=== PATIENT | female | born 1980 | race Two or more races ===

== ENCOUNTER 2020-01-30 08:34 | Outpatient (CLI) | payer OTHER ==
[~2020-01-30 08:34] MED LIST: EXCEDRIN MIGRAI1 TAB; SUMATRIPTAN SUC50 MG
== END 2020-01-30 09:02 | disposition home or self-care (01) ==
LOC: NUCLEAR 08:34
DX: K81.1 Chronic cholecystitis (principal)
CPT/HCPCS: 78227; A9537

== ENCOUNTER 2020-03-28 09:10 | Outpatient (CLI) | payer OTHER | END 2020-03-28 09:12 | disposition home or self-care (01) | LOC: SONOGRAMA 09:10 → MAMO-SONO 09:15 | DX: K80.10 Calculus of gallbladder with chronic cholecystitis without obstruction (principal); I10 Essential (primary) hypertension; G43.101 Migraine with aura, not intractable, with status migrainosus; N96 Recurrent pregnancy loss; O00.80 Other ectopic pregnancy without intrauterine pregnancy; R16.2 Hepatomegaly with splenomegaly, not elsewhere classified; R94.5 Abnormal results of liver function studies ==

== ENCOUNTER → 2022-05-08 | Emergency (ER) | payer OTHER ==
[~2022-05-08] VITALS: Ht 165.1 cm; Wt 95.3 kg
[~2022-05-08] MED LIST changes: +FIORINAL 50-321 EACH PO; +METHYLDOPA250 MG PO; +MIRALAX17 GM PO; +TYLENOL ARTHRI650 MG PO; +ULTRAM50 MG PO
== END | disposition home or self-care (01) ==
LOC: ER 11:06
DX: R07.89 Other chest pain (principal); T80.89XA Other complications following infusion, transfusion and therapeutic injection, initial encounter; Y84.8 Other medical procedures as the cause of abnormal reaction of the patient, or of later complication, without mention of misadventure at the time of the procedure; I10 Essential (primary) hypertension; Z20.822 Contact with and (suspected) exposure to COVID-19

== ENCOUNTER 2022-10-22 11:39 | Outpatient (CLI) | payer OTHER | END 2022-10-22 11:49 | disposition home or self-care (01) | LOC: SONOGRAMA 11:39 | DX: O02.1 Missed abortion (principal) ==